=== PATIENT | female | born 1960 | race Two or more races ===

== ENCOUNTER 2018-03-12 18:43 | Inpatient (IN) | payer OTHER ==
[~2018-03-12] VITALS: Ht 165.1 cm; Wt 86.6 kg
[2018-03-14] MEDS ORDERED: VERAPAMIL ER240 MG PO (13:47)
[2018-03-14] MEDS ORDERED: ASPIR 8181 MG PO (13:47)
[2018-03-24] MEDS ORDERED: INTESTINEX680 M1 PO ×2 (08:56)
[2018-03-24] MEDS ORDERED: OMEPRAZOLE20 MG PO ×2 (08:56)
[2018-03-24] MEDS ORDERED: PERCOCET 5-3251 EACH PO ×2 (08:56)
== END 2018-03-24 10:06 | disposition home or self-care (01) | DRG 331 ==
LOC: O/R 03-21 06:36 → SURH 03-21 10:15 → SURG 03-21 15:12
PROVIDERS: Surgery
PROC: 07TC4ZZ Resection of Pelvis Lymphatic, Percutaneous Endoscopic Approach (ICD-10-PCS; 2018-03-21)
PROC: 0DJD8ZZ Inspection of Lower Intestinal Tract, Via Natural or Artificial Opening Endoscopic (ICD-10-PCS; 2018-03-21)
PROC: 0DTN4ZZ Resection of Sigmoid Colon, Percutaneous Endoscopic Approach (ICD-10-PCS; principal; 2018-03-21 15:00)
DX: C18.7 Malignant neoplasm of sigmoid colon (principal); R59.0 Localized enlarged lymph nodes; D37.4 Neoplasm of uncertain behavior of colon; I11.9 Hypertensive heart disease without heart failure; D64.89 Other specified anemias

== ENCOUNTER 2018-03-20 06:05 | Day surgery (SDC) | payer OTHER ==
[~2018-03-20 06:05] MED LIST: ASPIR 8181 MG PO; VERAPAMIL ER240 MG PO
== END 2018-03-20 10:35 | disposition home or self-care (01) ==
LOC: AMB-ENDOS 06:05
DX: C18.7 Malignant neoplasm of sigmoid colon (principal)

== ENCOUNTER 2018-04-28 06:03 | Day surgery (SDC) | payer OTHER ==
[~2018-04-28 06:03] MED LIST changes: +INTESTINEX680 M1 PO; +OMEPRAZOLE20 MG PO; +PERCOCET 5-3251 EACH PO
[2018-04-28] MEDS ORDERED: PERCOCET 5-3251 EACH PO (11:28)
== END 2018-04-28 13:45 | disposition home or self-care (01) ==
LOC: CIR.AMB 06:03
DX: C18.7 Malignant neoplasm of sigmoid colon (principal)
CPT/HCPCS: 36561; C1751

== ENCOUNTER 2018-12-22 05:58 | Day surgery (SDC) | payer OTHER ==
[2018-12-22] MEDS ORDERED: PERCOCET 5-3251 EACH PO (07:39)
== END 2018-12-22 09:45 | disposition home or self-care (01) ==
LOC: CIR.AMB 05:58
DX: C18.7 Malignant neoplasm of sigmoid colon (principal)

== ENCOUNTER 2019-04-02 08:45 | Day surgery (SDC) | payer OTHER | END 2019-04-02 11:55 | disposition home or self-care (01) | LOC: AMB-ENDOS 08:45 | DX: K64.8 Other hemorrhoids (principal) ==

== ENCOUNTER 2020-02-25 06:25 | Day surgery (SDC) | payer OTHER | END 2020-02-25 12:40 | disposition home or self-care (01) | LOC: AMB-ENDOS 06:25 → ADM 13:15 | PROVIDERS: ATTEND Surgery | DX: K62.89 Other specified diseases of anus and rectum (principal); K64.8 Other hemorrhoids; K64.4 Residual hemorrhoidal skin tags ==